=== PATIENT | female | born 1950 | race Caucasian/White ===

== ENCOUNTER 2024-11-06 07:35 | Inpatient (IN) | payer MEDICARE, BC ==
[~2024-11-06] VITALS: Ht 165.1 cm; Wt 61.2 kg
[~2024-11-06 07:35] MED LIST: RISE150T PO
[2024-11-06 08:00] LABS: BASOPHILS # (AUTO) 0.1 K/UL (0.0-0.2); BASOPHILS % (AUTO) 0.8 % (0.0-2.0); EOSINOPHILS # (AUTO) 0.2 K/uL (0.0-0.7); EOSINOPHILS % (AUTO) 2.2 % (0.0-7.0); HEMOGLOBIN 16.6 g/dL (10.9-14.3); LYMPHOCYTES # (AUTO) 1.1 K/uL (0.8-4.8); LYMPHOCYTES % (AUTO) 14.6 % (20.5-51.5); MEAN CORPUSCULAR HEMOGLOBIN 30.7 uug (24.7-32.8); MEAN CORPUSCULAR HGB CONC 34 g/dL (32.3-35.6); MEAN CORPUSCULAR VOLUME 90.8 fL (75.5-95.3); MONOCYTES # (AUTO) 0.5 K/uL (0.1-1.30); MONOCYTES % (AUTO) 6.5 % (0.0-11.0); NEUTROPHILS # (AUTO) 5.8 K/uL (1.8-8.9); NEUTROPHILS % (AUTO) 75.9 % (38.5-71.5); PLATELET COUNT (AUTO) 240 K/uL (179-408); RED BLOOD CELL COUNT(AUTO) 5.39 MIL/uL (3.63-4.92); WHITE BLOOD COUNT (AUTO) 7.7 K/uL (3.8-11.8)
[2024-11-06] MEDS: IV NORMAL SALINE 1000 ML BAG IV ONE (08:08)
[2024-11-06 08:11] LABS: CALCIUM 9.3 mg/dL (8.5-10.1); CARBON DIOXIDE 25 mmol/L (21-32); CHLORIDE 102 mmol/L (98-107); CREATININE 0.7 mg/dL (0.6-1.3); GLUCOSE 127 mg/dL (74-106); POTASSIUM 4.3 mmol/L (3.5-5.1); SODIUM SERUM 137 mmol/L (136-145); UREA NITROGEN, BLOOD 15 mg/dL (7-18)
[2024-11-06] MEDS: ERYTHROMYCIN 0.5% OPHT OINT 3.5 GM TUBE OP ONE (09:30)
[2024-11-06] MEDS ORDERED: ONDANSETRON 4 MG/2 ML VIAL IV PRN (09:45)
[2024-11-06] MEDS ORDERED: REMEDY ESSENTIAL ZINC PASTE 113 GM TP PRN (09:45)
[2024-11-06] MEDS ORDERED: MAGNESIUM HYDROXIDE 30 ML LIQUID UDC PO PRN (09:45)
[2024-11-06] MEDS ORDERED: ACETAMINOPHEN 325 MG TABLET PO PRN (09:45)
[2024-11-06] MEDS ORDERED: ERYTHROMYCIN 0.5% OPHT OINT 3.5 GM TUBE ONE (10:54)
[2024-11-06 11:21] LABS: *BILIRUBIN,URIN NEGATIVE (NEGATIVE); *CLARITY,URINE CLEAR (CLEAR); *COLOR,URINE YELLOW (YELLOW); *KETONES,URINE NEGATIVE (NEGATIVE); *PROTEIN,URINE NEGATIVE (NEGATIVE); *UROBILINOGEN,URINE 0.2 E.U./dl (NORMAL); LEUKOCYTE ESTERASE ,URINE NEGATIVE (NEGATIVE); NITRITE, URINE NEGATIVE (NEGATIVE); UGLUCOSE NEGATIVE (NEGATIVE)
[2024-11-06 11:30] VITALS: BP 137/69; TEMP 98.1; O2SAT 96
[2024-11-06 11:49] LABS: *BLOOD, URINE TRACE (NEGATIVE)
[2024-11-06 12:33] LABS: RBC,URINE 0-3 /HPF (0-3); WBC,URINE 0-3 /HPF (0-3)
[2024-11-06] MEDS: ERYTHROMYCIN 0.5% OPHT OINT 3.5 GM TUBE OP SCH (12:47)
[2024-11-06] MEDS: ENOXAPARIN SODIUM 40 MG/0.4 ML DISP.SYRIN SQ SCH (12:47)
[2024-11-06 15:50] VITALS: BP 125/73; TEMP 98.5; O2SAT 99
[2024-11-06 19:00] VITALS: BP 115/64; TEMP 98.1; O2SAT 95
[2024-11-07] VITALS: BP 130/70; TEMP 98.1; O2SAT 98
[2024-11-07 04:00] VITALS: BP 130/78; TEMP 98; O2SAT 96
[2024-11-07 05:13] VITALS: BP_SYST 125; BP_SYST 130; BP_DIAS 74; BP_DIAS 78; TEMP 97.8; O2SAT 95
[2024-11-07] MEDS: PANTOPRAZOLE SODIUM 40 MG TABLET.DR PO SCH (06:15)
[2024-11-07 06:53] LABS: BASOPHILS % (AUTO) 0.5 % (0.0-2.0); EOSINOPHILS # (AUTO) 0.2 K/uL (0.0-0.7); EOSINOPHILS % (AUTO) 1.7 % (0.0-7.0); HEMATOCRIT 43.6 % (31.2-41.9); LYMPHOCYTES # (AUTO) 1.2 K/uL (0.8-4.8); LYMPHOCYTES % (AUTO) 13.1 % (20.5-51.5); MEAN CORPUSCULAR HGB CONC 35 g/dL (32.3-35.6); MONOCYTES # (AUTO) 0.7 K/uL (0.1-1.30); MONOCYTES % (AUTO) 7.8 % (0.0-11.0); NEUTROPHILS # (AUTO) 6.8 K/uL (1.8-8.9); NEUTROPHILS % (AUTO) 76.9 % (38.5-71.5); PLATELET COUNT (AUTO) 242 K/uL (179-408); RED BLOOD CELL COUNT(AUTO) 4.85 MIL/uL (3.63-4.92); RED CELL DISTRIBUTION WIDTH 13.8 % (12.3-17.7); WHITE BLOOD COUNT (AUTO) 8.9 K/uL (3.8-11.8)
[2024-11-07 07:06] LABS: CALCIUM 8.7 mg/dL (8.5-10.1); CARBON DIOXIDE 27 mmol/L (21-32); CHLORIDE 101 mmol/L (98-107); CHOLESTEROL 208 mg/dL (<200); CREATININE 0.5 mg/dL (0.6-1.3); GLUCOSE 116 mg/dL (74-106); HDL CHOLESTEROL 70 mg/dL (40-60); MAGNESIUM 2.1 mg/dL (1.8-2.4); PHOSPHOROUS 3.6 mg/dL (2.5-4.9); POTASSIUM 4.1 mmol/L (3.5-5.1); SODIUM SERUM 134 mmol/L (136-145); TRIGLYCERIDES 59 MG/DL (30-150); UREA NITROGEN, BLOOD 11 mg/dL (7-18)
[2024-11-07 07:09] LABS: DIFFERENTIAL COMMENT 1
[2024-11-07 07:22] LABS: THYROID STIMULATING HORMONE 1.258 mIU/mL (0.358-3.740)
[2024-11-07 08:02] VITALS: BP 129/66; TEMP 98.1; O2SAT 95
[2024-11-07] MEDS ORDERED: ERYT3.5O24 OP (10:08)
[2024-11-07 11:15] VITALS: BP 142/70; TEMP 97.7; O2SAT 95
[2024-11-07] MEDS ORDERED: ACET325T53 PO (16:39)
[2024-11-07] MEDS ORDERED: MAGN400O6 PO (16:40)
[2024-11-07] MEDS ORDERED: ZINC113P3 TP (16:42)
== END 2024-11-07 16:20 | DRG 310 ==
LOC: ER 07:35 → TELE3 10:58
PROVIDERS: ADMIT Student in an Organized Health Care Education/Training Program; ATTEND Student in an Organized Health Care Education/Training Program
DX: I49.8 Other specified cardiac arrhythmias (principal); I48.0 Paroxysmal atrial fibrillation; R55 Syncope and collapse; Z85.118 Personal history of other malignant neoplasm of bronchus and lung; Z90.2 Acquired absence of lung [part of]; Z96.652 Presence of left artificial knee joint; Z91.199 Patient's noncompliance with other medical treatment and regimen due to unspecified reason; D33.3 Benign neoplasm of cranial nerves; R29.6 Repeated falls
CPT/HCPCS: 36415; 70450; 71045; 83735; 84100; 84443; 84484; 85025; 93307; A4606; A4663; G0378; J1650; J7040

== ENCOUNTER 2024-11-07 11:09 | Inpatient (IN) | payer MEDICARE, BC ==
[~2024-11-07] VITALS: Ht 167.6 cm; Wt 62.8 kg
[~2024-11-07 11:09] MED LIST changes: +ERYT3.5O24 OP
[2024-11-07 12:20] VITALS: BP 129/66; TEMP 98.1
[2024-11-07 13:58] VITALS: BP 129/66; TEMP 98.1
[2024-11-07] MEDS ORDERED: ACET325T53 PO (16:39)
[2024-11-07] MEDS ORDERED: MAGN400O6 PO (16:40)
[2024-11-07] MEDS ORDERED: ZINC113P3 TP (16:42)
[2024-11-07 16:55] VITALS: BP 108/69; TEMP 97.8; O2SAT 97
[2024-11-07] MEDS ORDERED: ACETAMINOPHEN 325 MG TABLET PO PRN (18:00)
[2024-11-07] MEDS ORDERED: MAGNESIUM HYDROXIDE 30 ML LIQUID UDC PO PRN (18:00)
[2024-11-07] MEDS: ERYTHROMYCIN 0.5% OPHT OINT 3.5 GM TUBE EACHEYE SCH (19:27)
[2024-11-07 20:16] VITALS: BP 125/69; TEMP 98.6; O2SAT 97
[2024-11-07] MEDS: REMEDY ESSENTIAL ZINC PASTE 113 GM TOP SCH (21:02)
[2024-11-08 05:42] VITALS: BP 121/73; TEMP 97.8; O2SAT 96
[2024-11-08 08:00] VITALS: BP 124/70; TEMP 98.1; O2SAT 96
[2024-11-08] MEDS ORDERED: ACETAMINOPHEN 325 MG TABLET PO PRN (10:15)
[2024-11-08 16:19] VITALS: BP 107/64; TEMP 98; O2SAT 95
[2024-11-08 20:00] VITALS: BP 100/60; TEMP 98; O2SAT 94
[2024-11-09 05:00] VITALS: BP 104/64; TEMP 97.8; O2SAT 93
[2024-11-09 08:06] VITALS: BP 121/64; TEMP 97.7; O2SAT 97
[2024-11-09] MEDS: ENSURE WITH FIBER 237 ML LIQUID (CHOCOLATE) PO SCH (09:12)
[2024-11-09 15:53] VITALS: BP 105/64; TEMP 98.4; O2SAT 98
[2024-11-09 19:42] VITALS: BP 96/48; TEMP 98.4; O2SAT 95
[2024-11-09] MEDS ORDERED: REMEDY ESSENTIAL ZINC PASTE 113 GM TOP PRN (21:00)
[2024-11-09 21:14] VITALS: BP 93/54
[2024-11-10 05:40] VITALS: BP 114/66; TEMP 98.2; O2SAT 98
[2024-11-10 07:50] VITALS: BP 115/61; TEMP 97.1; O2SAT 97
[2024-11-10 15:57] VITALS: BP 110/67; TEMP 97.3; O2SAT 98
[2024-11-10 20:19] VITALS: BP 106/66; TEMP 98.3; O2SAT 96
[2024-11-11 06:38] VITALS: BP 128/59; TEMP 98.3; O2SAT 95
[2024-11-11 08:47] VITALS: BP 141/60; TEMP 97.2; O2SAT 99
[2024-11-11 16:31] VITALS: BP 109/66; TEMP 98.8; O2SAT 95
[2024-11-11 19:50] VITALS: BP 105/63; TEMP 97.9; O2SAT 93
[2024-11-12 05:43] VITALS: BP 122/70; TEMP 97.8; O2SAT 94
[2024-11-12 08:00] VITALS: BP 105/61; TEMP 97.9; O2SAT 98
[2024-11-12 16:28] VITALS: BP 100/65; TEMP 97.9; O2SAT 97
[2024-11-12 20:30] VITALS: BP 110/67; TEMP 97.8; O2SAT 95
[2024-11-12] MEDS: ERYTHROMYCIN 0.5% OPHT OINT 3.5 GM TUBE EACHEYE SCH (20:38)
[2024-11-13 04:59] VITALS: BP 116/68; TEMP 97.8; O2SAT 95
[2024-11-13 08:00] VITALS: BP 105/69; TEMP 97.7; O2SAT 96
[2024-11-13 16:03] VITALS: BP 103/56; TEMP 97.9; O2SAT 95
[2024-11-13 19:48] VITALS: BP 104/60; TEMP 97.7; O2SAT 95
[2024-11-14 06:54] VITALS: BP 110/64; TEMP 97.7; O2SAT 96
[2024-11-14 07:41] VITALS: BP 105/68; TEMP 97.8; O2SAT 96
[2024-11-14 08:00] VITALS: BP 118/67; TEMP 97.7; O2SAT 98
[2024-11-14 16:04] VITALS: BP 98/52; TEMP 98; O2SAT 96
[2024-11-14 19:36] VITALS: BP 101/55; TEMP 97.7; O2SAT 95
[2024-11-15 06:50] VITALS: BP 119/68; TEMP 97.2; O2SAT 96
[2024-11-15 07:48] VITALS: BP 127/59; TEMP 97.4; O2SAT 99
[2024-11-15 16:06] VITALS: BP 105/56; TEMP 98.1; O2SAT 96
[2024-11-15 19:50] VITALS: BP 112/58; TEMP 97.9; O2SAT 95
[2024-11-16 05:57] VITALS: BP 114/57; TEMP 98; O2SAT 95
[2024-11-16 08:00] VITALS: BP 127/72; TEMP 97.4; O2SAT 98
[2024-11-16 16:00] VITALS: BP 102/54; TEMP 97.8; O2SAT 97
[2024-11-16] MEDS: GENTAMICIN SULFATE OPHT DROP 5 ML BOTTLE EACHEYE SCH (17:49)
[2024-11-16] MEDS ORDERED: GENTAMICIN SULFATE OPHT DROP 5 ML BOTTLE EACHEYE SCH (18:00)
[2024-11-16 20:18] VITALS: BP 100/51; TEMP 97.8; O2SAT 95
[2024-11-17 05:20] VITALS: BP 110/55; TEMP 98
[2024-11-17 08:00] VITALS: BP 109/53; TEMP 97.7; O2SAT 95
[2024-11-17 18:50] VITALS: BP 101/53; TEMP 97.5; O2SAT 95
[2024-11-17 20:00] VITALS: BP 107/59; TEMP 98; O2SAT 96
[2024-11-17] MEDS: DOCUSATE SODIUM 100 MG CAPSULE PO SCH (21:00)
[2024-11-17] MEDS: ATORVASTATIN 10 MG TABLET PO SCH (21:00)
[2024-11-18 05:00] VITALS: BP 121/68; TEMP 97.7; O2SAT 93
[2024-11-18 08:00] VITALS: BP 128/73; TEMP 97.6; O2SAT 100
[2024-11-18 08:11] LABS: PLATELET COUNT (AUTO) 262 K/uL (179-408); RED BLOOD CELL COUNT(AUTO) 4.62 MIL/uL (3.63-4.92); RED CELL DISTRIBUTION WIDTH 14.0 % (12.3-17.7); WHITE BLOOD COUNT (AUTO) 8.1 K/uL (3.8-11.8)
[2024-11-18 08:48] LABS: ASPARTATE AMINOTRANSFERASE 14 U/L (15-37); CREATININE 0.5 mg/dL (0.6-1.3); SODIUM SERUM 138 mmol/L (136-145); TOTAL PROTEIN, SERUM 6.4 g/dL (6.4-8.2); UREA NITROGEN, BLOOD 16 mg/dL (7-18)
[2024-11-18 16:00] VITALS: BP 127/64; TEMP 98.5; O2SAT 96
[2024-11-19 08:00] VITALS: BP 148/64; TEMP 97.4; O2SAT 100
[2024-11-19 18:05] VITALS: BP 119/62; TEMP 98.4; O2SAT 96
[2024-11-20 05:15] VITALS: BP 126/67; TEMP 97.5; O2SAT 96
[2024-11-20 08:00] VITALS: BP 125/62; TEMP 97.6; O2SAT 95
== END 2024-11-20 17:20 | disposition home health service (06) | DRG 309 ==
PROVIDERS: ADMIT Physical Medicine & Rehabilitation Pain Medicine; ATTEND Physical Medicine & Rehabilitation Pain Medicine
DX: I48.0 Paroxysmal atrial fibrillation (principal); D68.59 Other primary thrombophilia; E44.0 Moderate protein-calorie malnutrition; Z85.118 Personal history of other malignant neoplasm of bronchus and lung; Z91.199 Patient's noncompliance with other medical treatment and regimen due to unspecified reason; D33.3 Benign neoplasm of cranial nerves; R29.6 Repeated falls; E78.5 Hyperlipidemia, unspecified; E88.09 Other disorders of plasma-protein metabolism, not elsewhere classified; H10.33 Unspecified acute conjunctivitis, bilateral; F43.21 Adjustment disorder with depressed mood; M19.90 Unspecified osteoarthritis, unspecified site; Z91.148 Patient's other noncompliance with medication regimen for other reason; Z91.81 History of falling; R53.1 Weakness
CPT/HCPCS: 36415; 83735; 84100; 85025; A4663